=== PATIENT | male | born 1960 | race Caucasian/White ===

== ENCOUNTER 2018-09-20 09:09 | Outpatient (REF) | payer MEDICAID, SELFPAY ==
[2018-09-20 21:45] LABS: Abs Immature Grans 0.04 k/cumm (0.0-0.09); Absolute Basophil Count 0.05 k/cumm (0.0-0.2); Absolute Eosinophil Count 0.25 k/cumm (0.0-0.7); Absolute Lymphocyte Count 1.95 k/cumm (1.2-3.4); Absolute Monocyte Count 0.53 k/cumm (0.11-0.7); Absolute Neutrophil Count 4.01 k/cumm (1.2-6.7); Basophils % 0.7; Eosinophils % 3.7; HGB 16.6 g/dL (13.5-17.5); Immature Grans % 0.6; Lymphocytes % 28.6; Mean Corp. HGB Concentration 34.6 g/dL (32.0-36.0); Mean Corpuscular Hemoglobin 29.9 pg (27.0-33.0); Mean Corpuscular Volume 86.3 fL (80-95); Mean Platelet Volume 11.9 fL (8.0-11.0); Monocytes % 7.8; Neutrophils % 58.6; Platelet Count 189 x1000/uL (130-400); RBC 5.56 m/cumm (4.50-6.00); RBC Distribution Width 13.4 % (11.8-14.1); White Blood Cell Count 6.83 k/cumm (4.4-10.8)
[2018-09-20 22:06] LABS: ALT 37 U/L (12-78); Albumin 4.3 g/dL (3.4-5.0); Alkaline Phosphatase 44 U/L (46-116); Anion Gap 15.6 mmol/L (3-11); BUN 19 mg/dL (7-18); Bilirubin, Total 0.4 mg/dL (0.2-1.0); CO2 21.4 mmol/L (21.0-32.0); Calcium 9.7 mg/dL (8.5-10.1); Chloride 103 mmol/L (98-107); Glucose 121 mg/dL (70-100); Potassium 4.4 mmol/L (3.5-5.1); Sodium 140 mmol/L (136-145); Total Protein 7.4 g/dL (6.4-8.2)
[2018-09-20 22:32] LABS: AST 58 U/L (15-37)
[2018-09-22 06:23] LABS: Amylase 38 U/L (25-115); Lipase 207 U/L (73-393)
[2018-09-22 10:11] LABS: Lyme Ab w Rflx to Lyme Confirm Negative
[2018-09-22 20:35] LABS: GGT 37 U/L (15-85)
[2018-09-23 17:22] LABS: Anaplasma phagocytophilum Negative (Negative); B. miyamotoi PCR Negative (Negative); Babesia divergens/MO-1 Negative (Negative); Babesia duncani Negative (Negative); Babesia microti Negative (Negative); Ehrlichia chaffeensis Negative (Negative); Ehrlichia ewingii/canis Negative (Negative); Ehrlichia muris eauclairensis Negative (Negative)
== END 2018-09-20 09:29 ==
LOC: NCHCN 09:09
PROVIDERS: PCP Family Medicine; Visit Provider Physician Assistant Medical
DX: R10.9 Unspecified abdominal pain (principal); W57.XXXA Bitten or stung by nonvenomous insect and other nonvenomous arthropods, initial encounter; T14.8XXA Other injury of unspecified body region, initial encounter
CPT/HCPCS: 80053; 83690; 87798; 82150; 82977; 85025; 86618

== ENCOUNTER 2018-12-13 20:02 | Outpatient (REF) | payer MEDICAID, SELFPAY ==
[2018-12-13 20:00] LABS: Abs Immature Grans 0.04 k/cumm (0.0-0.09); Absolute Basophil Count 0.04 k/cumm (0.0-0.2); Absolute Eosinophil Count 0.23 k/cumm (0.0-0.7); Absolute Lymphocyte Count 1.69 k/cumm (1.2-3.4); Absolute Monocyte Count 0.56 k/cumm (0.11-0.7); Basophils % 0.6; Eosinophils % 3.2; HCT 44.9 % (40.0-50.0); HGB 15.8 g/dL (13.5-17.5); Immature Grans % 0.6; Lymphocytes % 23.3; Mean Corp. HGB Concentration 35.2 g/dL (32.0-36.0); Mean Corpuscular Hemoglobin 30.3 pg (27.0-33.0); Mean Corpuscular Volume 86.2 fL (80-95); Mean Platelet Volume 11.6 fL (8.0-11.0); Monocytes % 7.7; Neutrophils % 64.6; Platelet Count 194 x1000/uL (130-400); RBC 5.21 m/cumm (4.50-6.00); RBC Distribution Width 13.1 % (11.8-14.1); White Blood Cell Count 7.26 k/cumm (4.4-10.8)
[2018-12-13 20:06] LABS: ALT 32 U/L (16-63); AST 21 U/L (15-37); Albumin 4.1 g/dL (3.4-5.0); Alkaline Phosphatase 48 U/L (46-116); Bilirubin, Total 0.5 mg/dL (0.2-1.0); Cholesterol 164 mg/dL (50-200); HDL Cholesterol 16 mg/dL (40-60); Total Protein 7.1 g/dL (6.4-8.2); Triglyceride 794 mg/dL (30-150)
[2018-12-13 20:21] LABS: LDL CHOLESTEROL 41 mg/dL (<100)
[2018-12-13 20:44] LABS: Bilirubin, Direct 0.06 mg/dL (0.00-0.20)
== END 2018-12-13 20:22 ==
LOC: NCHCN 20:02
PROVIDERS: PCP Family Medicine; Visit Provider Physician Assistant Medical
DX: K62.5 Hemorrhage of anus and rectum (principal); R94.5 Abnormal results of liver function studies
CPT/HCPCS: 80061; 80076; 83721; 85025

== ENCOUNTER 2019-03-07 08:30 | Outpatient (REF) | payer MEDICAID, SELFPAY ==
[2019-03-07 19:46] LABS: Hemoglobin A1C 5.6 % (4.5-6.2)
[2019-03-07 19:58] LABS: Albumin 3.9 g/dL (3.4-5.0); Alkaline Phosphatase 49 U/L (46-116); BUN 19 mg/dL (7-18); Bilirubin, Total 0.6 mg/dL (0.2-1.0); CREATININE 1.09 mg/dL (0.70-1.30); Calcium 8.5 mg/dL (8.5-10.1); Chloride 102 mmol/L (98-107); Cholesterol 184 mg/dL (<200); Glucose 143 mg/dL (74-106); HDL Cholesterol 15 mg/dL (40-60); Potassium 4.4 mmol/L (3.5-5.1); Sodium 137 mmol/L (136-145)
[2019-03-07 19:59] LABS: Triglyceride 1206 mg/dL (<150)
[2019-03-07 20:25] LABS: LDL CHOLESTEROL 33 mg/dL (<100)
[2019-03-07 20:58] LABS: ALT 62 U/L (16-63); AST 30 U/L (15-37)
[2019-03-07 20:59] LABS: Total Protein 7.3 g/dL (6.4-8.2)
== END 2019-03-07 08:50 ==
LOC: NCHCN 08:30
PROVIDERS: PCP Family Medicine; Visit Provider Physician Assistant Medical
DX: E78.5 Hyperlipidemia, unspecified (principal)
CPT/HCPCS: 80053; 80061; 83721; 83036

== ENCOUNTER 2019-05-30 10:18 | Outpatient (REF) | payer MEDICAID, SELFPAY ==
[2019-05-30 20:13] LABS: ALT 60 U/L (16-63); AST 26 U/L (15-37); Albumin 4.1 g/dL (3.4-5.0); Alkaline Phosphatase 38 U/L (46-116); Anion Gap 10.5 mmol/L (3-11); BUN 20 mg/dL (7-18); Bilirubin, Total 0.4 mg/dL (0.2-1.0); CO2 26.5 mmol/L (21.0-32.0); Calcium 9.4 mg/dL (8.5-10.1); Calculated LDL 36 mg/dL (<100); Chloride 102 mmol/L (98-107); Cholesterol 118 mg/dL (<200); Glucose 126 mg/dL (74-106); HDL Cholesterol 19 mg/dL (40-60); Potassium 4.7 mmol/L (3.5-5.1); Sodium 139 mmol/L (136-145); Total Protein 7.1 g/dL (6.4-8.2); Triglyceride 319 mg/dL (<150)
== END 2019-05-30 10:38 ==
LOC: NCHCN 10:18
PROVIDERS: PCP Family Medicine; Visit Provider Physician Assistant Medical
DX: E78.5 Hyperlipidemia, unspecified (principal); R94.5 Abnormal results of liver function studies
CPT/HCPCS: 80053; 80061

== ENCOUNTER 2019-11-27 20:19 | Outpatient (REF) | payer MEDICAID, SELFPAY ==
[2019-11-27 20:39] LABS: Hemoglobin A1C 5.9 % (<5.7)
[2019-11-27 20:42] LABS: ALT 46 U/L (16-63); AST 30 U/L (15-37); Albumin 4.1 g/dL (3.4-5.0); Alkaline Phosphatase 32 U/L (46-116); Anion Gap 8.5 mmol/L (3-11); BUN 19 mg/dL (7-18); Bilirubin, Total 0.5 mg/dL (0.2-1.0); CO2 27.5 mmol/L (21.0-32.0); CREATININE 1.22 mg/dL (0.70-1.30); Calcium 9.3 mg/dL (8.5-10.1); Calculated LDL 50 mg/dL (<100); Chloride 104 mmol/L (98-107); Cholesterol 136 mg/dL (<200); Glucose 125 mg/dL (74-106); HDL Cholesterol 19 mg/dL (40-60); Sodium 140 mmol/L (136-145); Total Protein 7.3 g/dL (6.4-8.2); Triglyceride 338 mg/dL (<150)
== END 2019-11-27 20:39 ==
LOC: NCHCN 20:19
PROVIDERS: PCP Family Medicine; Visit Provider Physician Assistant Medical
DX: E78.5 Hyperlipidemia, unspecified (principal); R73.03 Prediabetes
CPT/HCPCS: 80053; 80061; 83036

== ENCOUNTER 2020-12-20 12:09 | Outpatient (REF) | payer MEDICAID, SELFPAY ==
[2020-12-20 13:41] LABS: ALT 44 U/L (16-63); AST 24 U/L (15-37); Albumin 4.1 g/dL (3.4-5.0); Alkaline Phosphatase 32 U/L (46-116); Anion Gap 11.4 mmol/L (3-11); BUN 20 mg/dL (7-18); Bilirubin, Total 0.5 mg/dL (0.2-1.0); CO2 23.6 mmol/L (21.0-32.0); CREATININE 1.2 mg/dL (0.70-1.30); Calcium 9.1 mg/dL (8.5-10.1); Calculated LDL 44 mg/dL (<100); Chloride 102 mmol/L (98-107); Cholesterol 125 mg/dL (<200); Glucose 106 mg/dL (74-106); HDL Cholesterol 23 mg/dL (40-60); Potassium 4.2 mmol/L (3.5-5.1); Sodium 137 mmol/L (136-145); Total Protein 7.4 g/dL (6.4-8.2); Triglyceride 292 mg/dL (<150)
[2020-12-20 13:58] LABS: Hemoglobin A1C 5.9 % (<5.7)
== END 2020-12-20 12:10 | disposition home or self-care (01) ==
LOC: NCHCN 12:09
PROVIDERS: PCP Family Medicine; Visit Provider Physician Assistant Medical
DX: R73.03 Prediabetes (principal); E78.5 Hyperlipidemia, unspecified; R94.5 Abnormal results of liver function studies
CPT/HCPCS: 80053; 80061; 83036

== ENCOUNTER 2021-09-08 08:29 | Outpatient (REF) | payer MEDICAID, SELFPAY ==
[2021-09-08 15:50] LABS: Hemoglobin A1C 5.7 % (<5.7)
[2021-09-08 15:52] LABS: Anion Gap 11.5 mmol/L (3-11); BUN 16 mg/dL (7-18); CO2 21.5 mmol/L (21.0-32.0); CREATININE 1.2 mg/dL (0.70-1.30); Calcium 8.9 mg/dL (8.5-10.1); Chloride 103 mmol/L (98-107); Glucose 115 mg/dL (74-106); Potassium 4.1 mmol/L (3.5-5.1); Sodium 136 mmol/L (136-145)
[2021-09-08 16:37] LABS: Calculated LDL 43 mg/dL (<100); Cholesterol 113 mg/dL (<200); HDL Cholesterol 22 mg/dL (40-60); Triglyceride 244 mg/dL (<150)
[2021-09-08 17:07] LABS: ALT 47 U/L (16-63); AST 30 U/L (15-37); Alkaline Phosphatase 37 U/L (46-116); Bilirubin, Total 0.5 mg/dL (0.2-1.0); Total Protein 7.6 g/dL (6.4-8.2)
== END 2021-09-08 08:30 | disposition home or self-care (01) ==
LOC: NCHCN 08:29
PROVIDERS: PCP Family Medicine; Visit Provider Physician Assistant Medical
DX: E78.5 Hyperlipidemia, unspecified (principal); R73.03 Prediabetes
CPT/HCPCS: 80048; 80053; 80061; 83036

== ENCOUNTER 2021-12-12 09:46 | Outpatient (REF) | payer MEDICAID, SELFPAY ==
[2021-12-12 15:31] LABS: ALT 30 U/L (16-63); AST 23 U/L (15-37); Albumin 4.2 g/dL (3.4-5.0); Alkaline Phosphatase 33 U/L (46-116); Anion Gap 11.7 mmol/L (3-11); BUN 19 mg/dL (7-18); Bilirubin, Total 0.7 mg/dL (0.2-1.0); CO2 23.3 mmol/L (21.0-32.0); CREATININE 1.2 mg/dL (0.70-1.30); Calcium 9.3 mg/dL (8.5-10.1); Calculated LDL 34 mg/dL (<100); Chloride 102 mmol/L (98-107); Cholesterol 81 mg/dL (<200); Glucose 105 mg/dL (74-106); HDL Cholesterol 30 mg/dL (40-60); Potassium 4.2 mmol/L (3.5-5.1); Sodium 137 mmol/L (136-145); Total Protein 7.8 g/dL (6.4-8.2); Triglyceride 86 mg/dL (<150)
== END 2021-12-12 09:47 | disposition home or self-care (01) ==
LOC: NCHCN 09:46
PROVIDERS: PCP Family Medicine; Visit Provider Physician Assistant Medical
DX: E78.5 Hyperlipidemia, unspecified (principal)
CPT/HCPCS: 80053; 80061

== ENCOUNTER 2022-07-01 18:32 | Outpatient (REF) | payer MEDICAID, SELFPAY ==
[2022-07-01 20:31] LABS: Abs Immature Grans 0.03 10^3/uL (0.0-0.06); Absolute Basophil Count 0.08 10^3/uL (0.0-0.2); Absolute Eosinophil Count 0.17 10^3/uL (0.0-0.7); Absolute Lymphocyte Count 2.54 10^3/uL (1.2-3.4); Eosinophils % 2.1; HCT 45.2 % (40.0-50.0); HGB 15.8 g/dL (13.5-17.5); Immature Grans % 0.4; Lymphocytes % 30.9; MCH 30.3 pg (27.0-33.0); MCV 87 fL (80-95); MPV 11.2 fL (8.0-11.0); Monocytes % 6.1; Neutrophils % 59.5; Platelet Count 198 10^3/uL (130-400); RBC 5.22 10^6/uL (4.36-5.78); RDW 12.4 % (11.8-14.1); RDW-SD 39.6 fL; WBC 8.22 10^3/uL (4.4-10.8)
[2022-07-01 20:36] LABS: Hemoglobin A1C 5.7 % (<5.7)
[2022-07-01 20:45] LABS: ALT 59 U/L (16-63); AST 30 U/L (15-37); Albumin 4.2 g/dL (3.4-5.0); Alkaline Phosphatase 33 U/L (46-116); Anion Gap 10.2 mmol/L (3-11); BUN 23 mg/dL (7-18); Bilirubin, Total 0.4 mg/dL (0.2-1.0); CO2 23.8 mmol/L (21.0-32.0); CREATININE 1.3 mg/dL (0.70-1.30); Calcium 9.9 mg/dL (8.5-10.1); Chloride 102 mmol/L (98-107); Glucose 114 mg/dL (74-106); Magnesium 2.2 mg/dL (1.8-2.4); Sodium 136 mmol/L (136-145); Total Protein 7.7 g/dL (6.4-8.2)
== END 2022-07-01 18:33 | disposition home or self-care (01) ==
LOC: NCHCN 18:32
PROVIDERS: PCP Family Medicine; Visit Provider Physician Assistant Medical
DX: R07.9 Chest pain, unspecified (principal); R73.03 Prediabetes; E78.5 Hyperlipidemia, unspecified
CPT/HCPCS: 80053; 83036; 83735; 84443; 85025

== ENCOUNTER 2022-10-26 00:39 | Outpatient (CLI) | payer MEDICAID, SELFPAY ==
--- NOTE | 2022-10-26 | DI.CTLCSR_ITS ---
Exam(s) CT CHEST LUNG CANCER SCREEN EXAM: CT CHEST LUNG CANCER SCREEN CLINICAL HISTORY: SMOKER, SCREENING FOR LUNG CANCER, F17.210. TECHNIQUE: Imaging Protocol: Low Dose Technique CONTRAST MATERIAL: None COMPARISON: No exams were available for comparison FINDINGS: CHEST: LUNGS: There is a pleural based 4 millimeter nodule in left lower lobe. There is also a 4 millimeter pleural base nodule laterally in the right upper lobe. There is also a 5 mm nodule in the right mid dle lobe.. There are no confluent infiltrates. No pleural effusions. MEDIASTINUM: No obvious hilar adenopathy. Single subcarinal lymph node noted, minimally prominent. CARDIAC: Heart size is normal. There is no pericardial effusion.Caliber of the thoracic aorta is wit hin normal limits. OTHER: OSSEOUS: No significant osseous lesions.. IMPRESSION: 1. Small bilateral nodules as described above. No pleural effusions. No confluent infiltrates. 2. Recommend follow-up CT scan in 6 months. 3. Lung RADS Cat 3 - Probably Benign: Probably benign finding(s) - short term follow-up suggested; in clude nodules with a low likelihood of becoming a clinically active cancer. Lung-RADS 1.0 CATEGORIES: Category 0 - Prior chest CT exam(s) being located for comparison. Category 1 - Annual screening in 12 months. No nodules or definitely benign nodules. Category 2 - Annual screening in 12 months. Benign appearance. Nodules with low likelihood of becomin g active cancer. Category 3 - 6-month follow-up. Probably benign. Short-term follow-up suggested. Nodules with low lik elihood of becoming active cancer. Category 4A - 3-month follow-up and CT/PET if >8 mm in size. Suspicious finding. Findings which requi re additional testing. Category 4B - Findings which require additional testing and tissue sampling. Category 4X - Category 3 or 4 nodules with additional features or imaging findings that increases the suspicion of malignancy. Modifier S- Potentially clinically significant findings (non lung cancer) RADIATION DOSE DELIVERED: 91.14mGy.cm Total DLP DATA REPOSITORY: All CT scans at this facility are submitted to the National Radiology Data Registry (NRDR) Dose Index Registry (DIR) with the [employer] ([employer]). RADIATION OPTIMIZATION: All CT scans at this facility use at least one of these dose optimization te chniques: automated exposure control; mA and/or kV adjustment per patient size (includes targeted exa ms where dose is matched to clinical indication); or iterative reconstruction.
== END 2022-10-26 00:59 ==
LOC: DI 00:39
PROVIDERS: PCP Family Medicine; Visit Provider Physician Assistant Medical
DX: Z12.2 Encounter for screening for malignant neoplasm of respiratory organs (principal); F17.210 Nicotine dependence, cigarettes, uncomplicated; R91.1 Solitary pulmonary nodule
CPT/HCPCS: 71271

== ENCOUNTER 2022-11-25 17:59 | Outpatient (REF) | payer MEDICAID, SELFPAY ==
[2022-11-25 20:27] LABS: ALT 43 U/L (16-63); AST 25 U/L (15-37); Albumin 4.2 g/dL (3.4-5.0); BUN 21 mg/dL (7-18); Bilirubin, Total 0.7 mg/dL (0.2-1.0); CREATININE 1.4 mg/dL (0.70-1.30); Calcium 9.6 mg/dL (8.5-10.1); Calculated LDL 39 mg/dL (<100); Chloride 102 mmol/L (98-107); Cholesterol 129 mg/dL (<200); Estimated GFR 56.83 (mL/min/1.73m2); Glucose 100 mg/dL (74-106); HDL Cholesterol 24 mg/dL (40-60); Sodium 138 mmol/L (136-145); Total Protein 7.9 g/dL (6.4-8.2); Triglyceride 334 mg/dL (<150)
[2022-11-25 20:45] LABS: Alkaline Phosphatase 30 U/L (46-116)
== END 2022-11-25 18:00 | disposition home or self-care (01) ==
LOC: NCHCN 17:59
PROVIDERS: PCP Family Medicine; Visit Provider Physician Assistant Medical
DX: Z13.220 Encounter for screening for lipoid disorders (principal); Z13.228 Encounter for screening for other metabolic disorders; Z13.1 Encounter for screening for diabetes mellitus; Z00.00 Encounter for general adult medical examination without abnormal findings; R79.89 Other specified abnormal findings of blood chemistry
CPT/HCPCS: 80053; 80061; 83036

== ENCOUNTER 2023-06-01 13:14 | Outpatient (REF) | payer MEDICAID, SELFPAY ==
[2023-06-01 15:41] LABS: ALT 80 U/L (16-63); AST 42 U/L (15-37); Albumin 4.1 g/dL (3.4-5.0); Alkaline Phosphatase 30 U/L (46-116); Anion Gap 10.9 mmol/L (3-11); BUN 18 mg/dL (7-18); Bilirubin, Total 0.6 mg/dL (0.2-1.0); CO2 25.1 mmol/L (21.0-32.0); CREATININE 1.3 mg/dL (0.70-1.30); Calculated LDL 33 mg/dL (<100); Chloride 103 mmol/L (98-107); Cholesterol 135 mg/dL (<200); Estimated GFR 62.11 (mL/min/1.73m2); Glucose 131 mg/dL (74-106); HDL Cholesterol 26 mg/dL (40-60); Potassium 4.2 mmol/L (3.5-5.1); Sodium 139 mmol/L (136-145); Total Protein 7.7 g/dL (6.4-8.2); Triglyceride 383 mg/dL (<150)
[2023-06-01 15:44] LABS: Hemoglobin A1C 6.2 % (<5.7)
== END 2023-06-01 13:15 | disposition home or self-care (01) ==
LOC: NCHCN 13:14
PROVIDERS: PCP Family Medicine; Referring Provider Physician Assistant Medical; Visit Provider Physician Assistant Medical
DX: E78.5 Hyperlipidemia, unspecified (principal); R73.03 Prediabetes
CPT/HCPCS: 80053; 80061; 83036

== ENCOUNTER → 2023-06-08 01:00 | Outpatient (CLI) | payer MEDICAID, SELFPAY ==
--- NOTE | 2023-06-08 | DI.CT_ITS ---
Exam(s) CT CHEST WO EXAM: CT CHEST WO CLINICAL HISTORY: NODULES OF LUNG F17.200 NICOTINE DEPENDENCE R91.8 ABNL FINDING LUNG FIELD. TECHNIQUE: Multi planar reconstructions were performed. CONTRAST MATERIAL: None COMPARISON: CT CT CHEST LUNG CANCER SCREEN from 10/26/2022 FINDINGS: CHEST: LUNGS: There are multiple right lung nodules previously described which appear unchanged in size and number. The largest of these measures 5-6 mm. In the left lung a small subpleural 4 millimeter nodule in the lateral basal segment of the left lowe r lobe is unchanged. Mild increased markings in the lingular segment are unchanged. No new left galindo g nodules. No pleural effusions on either side. MEDIASTINUM: There is no obvious hilar nor mediastinal adenopathy. Visualized thyroid unremarkable.No obvious axillary adenopathy CARDIAC: Heart size is normal. There is no pericardial effusion.Caliber of the thoracic aorta is wit hin normal limits. VISUALIZED UPPER ABDOMEN:No adrenal masses. Hepatic steatosis. OSSEOUS: No significant osseous lesions.No fractures.. IMPRESSION: 1. Stable appearance of the previously described bilateral lung nodules, largest again measuring 5-6 mm. There are no new lung nodules nor pleural effusions. No new infiltrates. No new intrathoracic adenopathy evident. 2. Recommend repeat chest CT scan in 12 months,, earlier if clinically indicated. RADIATION DOSE DELIVERED: Total DLP DATA REPOSITORY: All CT scans at this facility are submitted to the National Radiology Data Registry (NRDR) Dose Index Registry (DIR) with the [employer] ([employer]). RADIATION OPTIMIZATION: All CT scans at this facility use at least one of these dose optimization te chniques: automated exposure control; mA and/or kV adjustment per patient size (includes targeted exa ms where dose is matched to clinical indication); or iterative reconstruction.
== END ==
PROVIDERS: PCP Family Medicine; Visit Provider Physician Assistant Medical
DX: F17.210 Nicotine dependence, cigarettes, uncomplicated (principal); R91.8 Other nonspecific abnormal finding of lung field
CPT/HCPCS: 71250

== ENCOUNTER 2023-08-31 08:42 | Outpatient (REF) | payer MEDICAID, SELFPAY ==
[2023-08-31 16:03] LABS: Abs Immature Grans 0.02 10^3/uL (0.0-0.06); Absolute Basophil Count 0.05 10^3/uL (0.0-0.2); Absolute Eosinophil Count 0.36 10^3/uL (0.0-0.7); Absolute Lymphocyte Count 1.27 10^3/uL (1.2-3.4); Absolute Monocyte Count 0.41 10^3/uL (0.1-0.8); Absolute Neutrophil Count 2.81 10^3/uL (1.2-6.7); Eosinophils % 7.3 %; HCT 45.2 % (40.0-50.0); HGB 15.7 g/dL (13.5-17.5); Immature Grans % 0.4 %; Lymphocytes % 25.8 %; MCH 30.7 pg (27.0-33.0); MCHC 34.7 % (32.0-36.0); MCV 88 fL (80-95); MPV 11.5 fL (8.0-11.0); Monocytes % 8.3 %; Neutrophils % 57.2 %; Platelet Count 154 10^3/uL (130-400); RBC 5.12 10^6/uL (4.36-5.78); RDW 12.2 % (11.8-14.1); RDW-SD 39.4 fL; WBC 4.92 10^3/uL (4.4-10.8)
[2023-08-31 16:22] LABS: ALT 39 U/L (16-63); AST 24 U/L (15-37); Albumin 3.9 g/dL (3.4-5.0); Alkaline Phosphatase 30 U/L (46-116); Anion Gap 9.2 mmol/L (3-11); BUN 20 mg/dL (7-18); Bilirubin, Direct 0.1 mg/dL (0.0-0.2); Bilirubin, Total 0.4 mg/dL (0.2-1.0); CO2 24.8 mmol/L (21.0-32.0); CREATININE 1.3 mg/dL (0.70-1.30); Calcium 8.8 mg/dL (8.5-10.1); Chloride 105 mmol/L (98-107); Creatine Kinase 144 U/L (39-308); Estimated GFR 62.11 (mL/min/1.73m2); Glucose 158 mg/dL (74-106); Magnesium 2.1 mg/dL (1.8-2.4); Potassium 4.2 mmol/L (3.5-5.1); Sodium 139 mmol/L (136-145); Total Protein 7.2 g/dL (6.4-8.2)
[2023-09-03 13:11] LABS: Anaplasma phagocytophilum Negative (Negative); B. miyamotoi PCR Negative (Negative); Babesia divergens/MO-1 Negative (Negative); Babesia duncani Negative (Negative); Babesia microti Negative (Negative); Ehrlichia chaffeensis Negative (Negative); Ehrlichia ewingii/canis Negative (Negative); Ehrlichia muris eauclairensis Negative (Negative)
[2023-09-07 12:45] LABS: Hemoglobin A1C 5.7 % (4.0-5.6)
== END 2023-08-31 08:43 | disposition home or self-care (01) ==
LOC: NCHCN 08:42
PROVIDERS: PCP Family Medicine; Visit Provider Physician Assistant Medical
DX: R73.03 Prediabetes (principal); M79.18 Myalgia, other site; W57.XXXA Bitten or stung by nonvenomous insect and other nonvenomous arthropods, initial encounter; R74.01 Elevation of levels of liver transaminase levels; X58.XXXA Exposure to other specified factors, initial encounter
CPT/HCPCS: 80048; 80076; 82550; 87798; 83036; 83735; 85025; 86618

== ENCOUNTER 2024-06-06 10:17 | Outpatient (REF) | payer MEDICAID, SELFPAY ==
[2024-06-06 15:56] LABS: ALT 43 U/L (16-63); AST 29 U/L (15-37); Albumin 4.1 g/dL (3.4-5.0); Alkaline Phosphatase 31 U/L (46-116); Anion Gap 5.6 mmol/L (3-11); BUN 22 mg/dL (7-18); Bilirubin, Total 0.5 mg/dL (0.2-1.0); CO2 29.4 mmol/L (21.0-32.0); CREATININE 1.4 mg/dL (0.70-1.30); Calcium 9.5 mg/dL (8.5-10.1); Calculated LDL 40 mg/dL (<100); Chloride 104 mmol/L (98-107); Cholesterol 115 mg/dL (<200); Estimated GFR 56.48 (mL/min/1.73m2); Glucose 154 mg/dL (74-106); HDL Cholesterol 28 mg/dL (>or=40); Potassium 4.4 mmol/L (3.5-5.1); Sodium 139 mmol/L (136-145); Total Protein 7.4 g/dL (6.4-8.2); Triglyceride 235 mg/dL (<150)
[2024-06-06 16:58] LABS: Hemoglobin A1C 5.9 % (<5.7)
== END 2024-06-06 10:18 | disposition home or self-care (01) ==
LOC: NCHCN 10:17
PROVIDERS: PCP Family Medicine; Visit Provider Physician Assistant Medical
DX: E78.5 Hyperlipidemia, unspecified (principal); R73.03 Prediabetes
CPT/HCPCS: 80053; 80061; 83036

== ENCOUNTER 2024-06-12 00:53 | Outpatient (CLI) | payer MEDICAID, SELFPAY ==
--- NOTE | 2024-06-12 | DI.CTLCSR_ITS ---
Exam(s) CT CHEST LUNG CANCER SCREEN EXAM: CT CHEST LUNG CANCER SCREEN CLINICAL HISTORY: NICOTINE DEPENDENCE, CIGARETTES F17.210 TECHNIQUE: Imaging Protocol: Axial computed tomography images with coronal and sagittal reformatted images were created and reviewed. Low dose screening protocol. COMPARISON: CT CT CHEST LUNG CANCER SCREEN from 10/26/[address] CHEST WO from 06/08/2023 FINDINGS: Tracheobronchial tree: No bronchiectasis or mucus plugging. Mediastinum and July: No dominant adenopathy or fluid collection. Pulmonary parenchyma: No consolidation or dominant measurable mass. [id number] emphysematous ch anges greater in the upper lobes.. No significant interstitial changes. Lung Nodules: Stable 6 millimeter nodule right upper lobe. Stable 4 millimeter pleural based nodule in the lateral right upper lobe. Stable 4 millimeter nodule in the lateral left lower lobe. Stable pleural based nodule lateral right lower lobe. Stable 5 millimeter nodule right middle lobe. No new pulmonary nodules. Pleura: No effusion. No pneumothorax. Heart: The heart is not dilated. No coronary artery calcifications are seen. No pericardial effusion. Aorta: Thoracic aorta non-dilated. Upper abdomen: Unremarkable. Bones: Unremarkable for age. Soft Tissues: Unremarkable. IMPRESSION: Stable bilateral pulmonary nodules. Lung RADS Cat 2 - Benign Appearance / Behavior: Nodules with a very low likelihood of becoming a clin ically active cancer due to size or lack of growth Lung-RADS 1.0 CATEGORIES: Category 0 - Prior chest CT exam(s) being located for comparison. Category 1 - Annual screening in 12 months. No nodules or definitely benign nodules. Category 2 - Annual screening in 12 months. Benign appearance. Nodules with low likelihood of becomin g active cancer. Category 3 - 6-month follow-up. Probably benign. Short-term follow-up suggested. Nodules with low lik elihood of becoming active cancer. Category 4A - 3-month follow-up and CT/PET if >8 mm in size. Suspicious finding. Findings which requi re additional testing. Category 4B - Findings which require additional testing and tissue sampling. Category 4X - Category 3 or 4 nodules with additional features or imaging findings that increases the suspicion of malignancy. Modifier S- Potentially clinically significant findings (non lung cancer) RADIATION DOSE DELIVERED: !Error Total DLP DATA REPOSITORY: All CT scans at this facility are submitted to the National Radiology Data Registry (NRDR) Dose Index Registry (DIR) with the [employer] ([employer]). RADIATION OPTIMIZATION: All CT scans at this facility use at least one of these dose optimization te chniques: automated exposure control; mA and/or kV adjustment per patient size (includes targeted exa ms where dose is matched to clinical indication); or iterative reconstruction.
== END 2024-06-12 01:13 ==
LOC: DI 01:06
PROVIDERS: PCP Family Medicine; Visit Provider Physician Assistant Medical
DX: Z12.2 Encounter for screening for malignant neoplasm of respiratory organs (principal); F17.210 Nicotine dependence, cigarettes, uncomplicated; R91.8 Other nonspecific abnormal finding of lung field
CPT/HCPCS: 71271

== ENCOUNTER 2024-07-11 12:27 | Outpatient (REF) | payer MEDICAID, SELFPAY ==
[2024-07-11 15:59] LABS: Anion Gap 7.6 mmol/L (3-11); BUN 20 mg/dL (7-18); CO2 26.4 mmol/L (21.0-32.0); CREATININE 1.4 mg/dL (0.70-1.30); Calcium 9.5 mg/dL (8.5-10.1); Chloride 106 mmol/L (98-107); Estimated GFR 56.48 (mL/min/1.73m2); Glucose 128 mg/dL (74-106); Potassium 4.5 mmol/L (3.5-5.1); Sodium 140 mmol/L (136-145)
[2024-07-11 16:59] LABS: COMMENT (LAB VIEW ONLY) 125.57 mg/dL; PROTEIN 8.8 mg/dL; Prot/Crea Ur Ratio 0.07
== END 2024-07-11 12:28 | disposition home or self-care (01) ==
LOC: NCHCN 12:27
PROVIDERS: PCP Family Medicine; Visit Provider Physician Assistant Medical
DX: R79.89 Other specified abnormal findings of blood chemistry (principal)
CPT/HCPCS: 80048; 82565; 84156